=== PATIENT | male | born 1980 | race Caucasian/White ===

== ENCOUNTER 2020-08-19 19:18 | Emergency (ER) | payer OTHER, SELFPAY ==
[2020-08-19 19:20] VITALS: BP 146/79; PULSE 91; RESP 18; TEMP 36.6; O2SAT 100
[2020-08-19 19:44] LABS: Basophils Absolute Auto 0.1 K/mm3 (0.0-0.1); Basophils Percent Auto 0.7 % (0.2-1.2); Eosinophils Absolute Auto 0.1 K/mm3 (0-0.3); Eosinophils Percent Auto 1.2 % (0-4.4); Hematocrit 44.3 % (42.0-52.0); Hemoglobin 14.9 g/dL (14.0-18.0); Immature Granulocyte Absolute 0.03 K/mm3 (0.00-0.031); Immature Granulocyte Percent A 0.3 % (0-0.5); Lymphocytes Absolute Auto 0.96 K/mm3 (0.9-3.2); Lymphocytes Percent Auto 9.5 % (18.3-44.2); Mean Corpuscular HGB Conc 33.6 g/dl (32-36); Mean Corpuscular Hemoglobin 30.7 pg (26-34); Mean Corpuscular Volume 91.3 fl (80-100); Mean Platelet Volume 10.1 fl (7.4-10.4); Monocytes Absolute Auto 0.6 K/mm3 (0.1-0.6); Monocytes Percent Auto 6.4 % (2.6-8.5); Neutrophils Absolute Auto 8.2 K/mm3 (1.3-6.7); Neutrophils Percent Auto 81.9 % (45.5-73.1); Platelet Count Result 227 k/mm3 (150-375); Red Blood Count 4.85 M/mm3 (4.6-6.20); Red Cell Distribution Width 11.9 % (11.5-14.5); White Blood Count 10.1 K/mm3 (4.5-10.0)
[2020-08-19 19:55] LABS: Anion Gap 10 mmol/L (8-16); Blood Urea Nitrogen 15 mg/dL (9-20); Calcium 9.2 mg/dL (8.4-10.2); Carbon Dioxide 27 mmol/L (22-30); Chloride 103 mmol/L (98-107); Estimated CRCL calculation 93 ml/min; Estimated Glomerular Filt Rate > 60; Glucose 106 mg/dL (75-110); Potassium 3.9 mmol/L (3.4-5.0); Sodium 140 mmol/L (137-145)
--- NOTE | 2020-08-19 20:04 | PC.NURSE ---
Patient's BG 161 upon arrival to ED
--- NOTE | 2020-08-19 20:18 | ED.GENADULT ---
HPI - General Adult General Chief complaint: Unspecified Stated complaint: AMS/ low bs Source: patient Mode of arrival: EMS Limitations: no limitations History of Present Illness HPI narrative: Patient is a 40-year-old male who who presents to emergency department for evaluation of hypoglycemic event that occurred while at work today was noticed by coworkers to be walking off balance and confused they know that he has a history of diabetes and had has had hypoglycemic events in the past EMS was contacted found to have low blood sugar was given D10 with improvement on arrival ANO x4 with no complaints denies recent illness notes that he did take his insulin prior to lunch when he had a [facility] [place] patient otherwise resting comfortably and notes that he has been compliant with his medication Related Data Allergies Allergy/AdvReac Type Severity Reaction Status Date / Time levofloxacin Allergy Severe FEVER Verified 03/11/19 22:22 Review of Systems Review of Systems: All systems reviewed & are unremarkable except as noted in HPI and below PMFSH Past Medical History Medical History (Updated 08/19/20 @ 20:22 by Jan Alvarez PA-C) Diabetes mellitus Social History Social History (Updated 08/19/20 @ 20:20 by Jan Alvarez PA-C) Tobacco type: e-cigarettes/vaping Exam Narrative: Exam Narrative: GENERAL: Well-appearing, well-nourished, and in no acute distress. HEAD: Normocephalic, atraumatic. EYES: PERRLA and EOMI. ENT: Nares clear, no rhinorrhea or epistaxis. Mucous membranes moist. CHEST: Clear to auscultation. No respiratory distress. No wheezes rales or rhonchi HEART: Regular rate and rhythm. No murmur heard. EXTREMITIES: Normal range of motion. No edema. SKIN: Warm, dry, no rash. NEURO: No focal deficits. Alert and oriented x3. Cranial nerves II through XII grossly intact PSYCH: Normal mood and affect. Course Course Emergency Course: Patient in the room no distress aware of case findings treatment plan diagnosis felt appropriate for discharge home agreeing to follow-up as directed. Patient has been observed with normal sugar given D10 and has eaten feels comfortable to go home with his and was given reasons to return will follow his sugars closely Vital Signs Vital signs: Vital Signs Temperature 97.9 F 08/19/20 19:20 Pulse Rate 91 08/19/20 19:20 Respiratory Rate 18 08/19/20 19:20 Blood Pressure 146/79 H 08/19/20 19:20 Pulse Oximetry 100 08/19/20 19:20 Temperature 97.9 F 08/19/20 19:20 Pulse Rate 91 08/19/20 19:20 Respiratory Rate 18 08/19/20 19:20 Blood Pressure 146/79 H 08/19/20 19:20 Pulse Oximetry 100 08/19/20 19:20 Medical Decision Making MDM Narrative Medical decision making narrative: Patient with hypoglycemic event which was treated patient was evaluated felt appropriate for discharge home agreeing to follow-up as directed felt appropriate for outpatient reevaluation agreeing to follow with primary care will be discharged home with family Vital Signs Vital Signs: Vital Signs Temperature 97.9 F 08/19/20 19:20 Pulse Rate 91 08/19/20 19:20 Respiratory Rate 18 08/19/20 19:20 Blood Pressure 146/79 H 08/19/20 19:20 Pulse Oximetry 100 08/19/20 19:20 Temperature 97.9 F 08/19/20 19:20 Pulse Rate 91 08/19/20 19:20 Respiratory Rate 18 08/19/20 19:20 Blood Pressure 146/79 H 08/19/20 19:20 Pulse Oximetry 100 08/19/20 19:20 Lab Data Result diagrams: 08/19/20 19:38 08/19/20 19:38 Labs: Lab Results 08/19/20 08/19/20 Range/Units 19:38 19:38 WBC 10.1 H (4.5-10.0) K/mm3 RBC 4.85 (4.6-6.20) M/mm3 Hgb 14.9 (14.0-18.0) g/dL Hct 44.3 (42.0-52.0) % MCV 91.3 (80-100) fl MCH 30.7 (26-34) pg MCHC 33.6 (32-36) g/dl RDW 11.9 (11.5-14.5) % Plt Count 227 (150-375) k/mm3 MPV 10.1 (7.4-10.4) fl Immature Gran % (Auto) 0.3 (0-0.5) % Neut % (Auto) 81.9 H (
[2020-08-19 20:32] VITALS: BP 126/78; PULSE 93; RESP 18; O2SAT 100
[2020-08-21 09:15] LABS: Glucose Point of Care 161 (65-105)
== END 2020-08-19 20:34 | disposition home or self-care (01) ==
PROVIDERS: Emergency Medicine Emergency Medical Services; Emergency Provider Emergency Medicine
DX: E11.649 Type 2 diabetes mellitus with hypoglycemia without coma (principal); F17.290 Nicotine dependence, other tobacco product, uncomplicated
CPT/HCPCS: 36415; 80048; 82948; 85025; 99283

== ENCOUNTER 2021-04-07 20:12 | Emergency (ER) | payer OTHER, SELFPAY ==
--- NOTE | ~2021-04-07 | CT_ITS ---
EXAMINATION: CT abdomen pelvis w con EXAM DATE: 04/07/2021 21:58 INDICATION: Nausea vomiting and diarrhea. TECHNIQUE: Spiral CT of the abdomen and pelvis was performed following intravenous injection of 100 m L Omnipaque 350. Axial, coronal and sagittal images of the abdomen and pelvis were reviewed. The do se-length product (DLP) for this examination was 607.70 mGy-cm. The exposure was tailored according to patient size (auto mA exposure control), and iterative reconstruction (ASIR) was used as additiona l dose reduction technique. There is no prior study for comparison. FINDINGS: The liver, spleen, adrenal glands and pancreas are unremarkable. Gallbladder is unremarkab le. No biliary obstruction. Portal and splenic veins are patent. Multiple bilateral kidney stones. There is a stone in the left ureterovesicular junction measuring 3.5 mm. Mild enhancement of the lef t ureter urothelium and mild left perinephric fat stranding, possible upper urinary tract infection. Minimal hydroureteronephrosis. No CT evidence of pyelonephritis. The prostate is unremarkable. The b ladder is unremarkable. There is no retroperitoneal or pelvic lymphadenopathy. The appendix is normal. The stomach and small bowel are unremarkable. There is expected amount of c olonic stool. No free intraperitoneal gas. The heart is normal in size. There are no pericardial or pleural effusions. The lung bases are unremarkable. There are no osteoblastic or osteolytic les ions identified. Lower abdominal subcutaneous fat stranding, calcifications probably from injections . IMPRESSION: 1. Left UVJ 3.5 mm stone, minimal obstructive nephropathy. Possible left upper urinary tract infecti on. 2. Bilateral nephrolithiasis. Reviewed, dictated and finalized at location A. IMPRESSION: 1. Left UVJ 3.5 mm stone, minimal obstructive nephropathy. Possible left upper urinary tract infection. 2. Bilateral nephrolithiasis.
[2021-04-07 20:18] VITALS: BP 148/89; PULSE 67; RESP 17; TEMP 36.3; O2SAT 100
[2021-04-07 20:34] LABS: Glucose Point of Care 101 mg/dl (65-105)
[2021-04-07 20:52] LABS: Basophils Absolute Auto 0.1 K/mm3 (0.0-0.1); Basophils Percent Auto 0.6 % (0.2-1.2); Eosinophils Absolute Auto 0.2 K/mm3 (0-0.3); Eosinophils Percent Auto 1.5 % (0-4.4); Hematocrit 45.8 % (42.0-52.0); Hemoglobin 15.6 g/dL (14.0-18.0); Immature Granulocyte Absolute 0.04 K/mm3 (0.00-0.031); Immature Granulocyte Percent A 0.4 % (0-0.5); Lymphocytes Absolute Auto 2.03 K/mm3 (0.9-3.2); Lymphocytes Percent Auto 18.5 % (18.3-44.2); Mean Corpuscular HGB Conc 34.1 g/dl (32-36); Mean Corpuscular Volume 88.1 fl (80-100); Mean Platelet Volume 9.9 fl (7.4-10.4); Monocytes Absolute Auto 0.6 K/mm3 (0.1-0.6); Monocytes Percent Auto 5.7 % (2.6-8.5); Neutrophils Absolute Auto 8.1 K/mm3 (1.3-6.7); Neutrophils Percent Auto 73.3 % (45.5-73.1); Platelet Count Result 247 k/mm3 (150-375); Red Cell Distribution Width 11.8 % (11.5-14.5)
[2021-04-07 21:02] LABS: Alanine Aminotransferase 26 U/L (4-50); Albumin Level 4.9 g/dL (3.5-5.1); Alkaline Phosphatase 76 U/L (38-126); Anion Gap 16 mmol/L (8-16); Aspartate Amino Transferase 31 U/L (17-59); Bilirubin,Total 0.8 mg/dL (0.2-1.3); Blood Urea Nitrogen 13 mg/dL (9-20); Calcium 10.6 mg/dL (8.4-10.2); Carbon Dioxide 20 mmol/L (22-30); Chloride 103 mmol/L (98-107); Estimated Glomerular Filt Rate > 60; Glucose 131 mg/dL (65-110); Lipase 27 U/L (23-300); Potassium 3.9 mmol/L (3.4-5.0); Sodium 139 mmol/L (137-145)
[2021-04-07] MEDS: SODIUM CHLORIDE 0.9% IV 1,000 ML 999 ML IV CONT (21:07)
[2021-04-07] MEDS: ONDANSETRON INJ 4 MG/2 ML VIAL 8 MG (21:09)
--- NOTE | 2021-04-07 21:09 | PC.NURSE ---
jani from dr bunch to give Zofran 8 mg ivp and 1l of NS
[2021-04-07 21:18] LABS: Base Excess ABG 1.2 mEq/l (+/-2.0); Fractional Inspired Oxygen 21 %; HCO3 ABG 19.6 mEq/l (22.0-26.0); Oxygen Content ABG 21.8 %vol (16.0-22.0); Oxygen Saturation ABG 98.9 % (95.0-100.0); Oxyhemoglobin 97.7 % THb (90.0-100.0); PO2 ABG 116.5 mmHg (80.0-100.0); PO2 FiO2 Ratio Arterial Blood 5.55 %; Total Hemoglobin 15.8 g/dL (12.0-18.0)
[2021-04-07 21:20] LABS: pH ABG 7.623 (7.350-7.450)
[2021-04-07 21:21] LABS: Modified Allen's Test Pass; PCO2 ABG 19.4 mmHg (35.0-45.0); Site Drawn RIGHT RADIAL
[2021-04-07 21:37] LABS: Beta-Hydroxybutyrate/Acetoacetate 0.56 mmol/L (0.02-0.27); Magnesium 1.7 mg/dL (1.6-2.3); Phosphorus 1.2 mg/dL (2.5-4.5)
--- NOTE | 2021-04-07 21:41 | ED.GENADULT ---
HPI - General Adult General Chief complaint: Nausea/Vomiting/Diarrhea Stated complaint: L flank pain/ n/v/d Time Seen by Provider: 04/07/21 20:43 Source: patient, EMS and RN notes reviewed Mode of arrival: EMS Limitations: no limitations History of Present Illness HPI narrative: Patient is 41 years old white female work-up today at 3 PM and was thirsty, blood glucose was 395, patient took his regular insulin with good improvement, few hours later while sitting watching TV started feeling pain at the left side of his abdomen, gradually got worse, went to the bathroom, had frequent vomiting and also had loose stools x2. In the emergency room patient had at least 6 episodes of vomiting. Currently is feeling okay, denying any pain. History of insulin-dependent diabetes. Fully vaccinated for COVID-19. Denies any history of abdominal surgery. Related Data Home Medications Medication Instructions Recorded Confirmed insulin glargine [Lantus Solostar SUBCUT 04/07/21 U-100 Insulin] insulin lispro [Humalog KwikPen unit SUBCUT 04/07/21 Insulin] Allergies Allergy/AdvReac Type Severity Reaction Status Date / Time levofloxacin Allergy Severe FEVER Verified 04/07/21 22:36 Review of Systems Review of Systems: Narrative: CONSTITUTIONAL: Denies fever, chills, or sweats. EYES: Denies visual changes, redness, or discharge. ENT: Denies rhinorrhea, congestion, sore throat, or otalgia. CARDIOVASCULAR: Denies chest pain, palpitations, or edema. RESPIRATORY: Denies cough or dyspnea. GASTROINTESTINAL: Denies abdominal pain, nausea, vomiting, or diarrhea. GENITOURINARY: Denies dysuria or hematuria. SKIN: Denies rash or itching. MUSCULOSKELETAL: Denies back pain, joint pain, or myalgia. NEUROLOGIC: Denies headache, numbness, or weakness. PSYCHIATRIC: Denies anxiety or depression. PMFSH Past Medical History Medical History Diabetes mellitus Social History Social History Tobacco type: e-cigarettes/vaping Gender identity (if verbalized by the patient): Male Exam Narrative: Exam Narrative: General appearance: Well-developed, well-nourished Skin: Normal color Head: Normocephalic, nontraumatic Eyes: Clear conjunctiva ENT: Oropharynx normal, ears normal, nose normal Neck: Supple, nontender Chest and respiratory: Airway patent, no respiratory distress, no accessory muscle use Heart: Regular rate/rhythm Abdomen: Soft, slight tenderness left lower quadrant with deep palpation, no organomegaly, quiet bowel sounds Vascular: Normal peripheral pulses, normal capillary refill. Musculoskeletal: Normal range of motion, nontender back Neurologic: Alert and oriented ?3, [employer] is normal as tested, no gross motor deficit Course Course Emergency Course: Stable, improving Vital Signs Vital signs: Vital Signs Temperature 36.3 C L 04/07/21 20:18 Pulse Rate 67 04/07/21 20:18 Respiratory Rate 17 04/07/21 20:18 Blood Pressure 148/89 H 04/07/21 20:18 Pulse Oximetry 100 04/07/21 20:18 Temperature 36.7 C 04/07/21 22:32 Pulse Rate 80 04/07/21 22:32 Respiratory Rate 18 04/07/21 22:32 Blood Pressure 122/72 04/07/21 22:32 Pulse Oximetry 100 04/07/21 22:32 Medical Decision Making MDM Narrative Medical decision making narrative: Left lower quadrant pain. Kidney stone, pyelonephritis, diverticulitis is my concern. Labs, UA, IV fluid, CT abdomen pelvis with IV contrast. Differential Diagnosis Differential Diagnosis: Kidney stone, urinary tract infection, diverticulitis Vital Signs Vital Signs: Vital Signs Temperature 36.3 C L
[2021-04-07 22:31] VITALS: BP 122/72; BP 137/70; BP 140/77; PULSE 68; PULSE 80; PULSE 82
[2021-04-07 22:32] VITALS: BP 122/72; PULSE 80; RESP 18; TEMP 36.7; O2SAT 100
[2021-04-07 22:51] LABS: Add Urine Microscopic? YES; Appearance Urine Clear (Clear); Bilirubin Urine Negative (Negative); Blood Urine 2+ (Negative); Color Urine Straw (Yellow); Glucose Urine UA Negative (Negative); Ketones Urine 1+ mg/dL (Negative); Leukocyte Esterase Ur Negative LEU/UL (Negative); Mucus Urine Rare /lpf; Nitrate Urine Negative (Negative); Protein Urine Negative (Negative); RBC Urine 51-75 /hpf (0-2); Urobilinogen Urine Negative mg/dL (<2.0); WBC Urine 0-3 /hpf
[2021-04-07 22:52] LABS: Specific Grav Ur 1.032 (1.001-1.035)
[2021-04-07 23:40] VITALS: BP 131/76; PULSE 84; RESP 19; TEMP 36.6; O2SAT 99
== END 2021-04-07 23:46 | disposition home or self-care (01) ==
PROVIDERS: Emergency Provider Emergency Medicine
DX: N13.8 Other obstructive and reflux uropathy (principal); N20.2 Calculus of kidney with calculus of ureter; E11.9 Type 2 diabetes mellitus without complications; Z79.4 Long term (current) use of insulin; F17.290 Nicotine dependence, other tobacco product, uncomplicated
CPT/HCPCS: 36415; 36600; 74177; 80053; 81001; 82010; 82805; 82948; 83690; 83735; 84100; 85025; 96374; 99284; J2405; J7030; Q9967